=== PATIENT | male | born 1960 | race Caucasian/White ===

== ENCOUNTER 2021-09-25 10:40 | Inpatient (IN) | payer OTHER ==
[~2021-09-25] VITALS: Ht 152.4 cm; Wt 108.0 kg
--- NOTE | 2021-09-25 10:45 | NUR ---
PT TO ROOM WITH STEADY GAIT
[2021-09-25] MEDS ORDERED: MELOXICAM7.5 MG PO (11:14)
[2021-09-25] MEDS ORDERED: METOPROL TAR25 MG PO (11:15)
--- NOTE | 2021-09-25 12:15 | NUR ---
PT ADVISED OF CONTINUED WAIT TIME. COMFORT MEASURES PROVIDED.
[2021-09-25 12:23] LABS: IMMATURE GRANULOCYTES 3.9 % (0.0-5.0); MEAN CELL VOLUME 91.6 fL CALC (80.0-100.0); MEAN CORPUSCULAR HGB 28.7 pG CALC (26.0-32.0); MEAN CORPUSCULAR HGB CONC 31.4 g/dL CAL (32.0-36.0); NEUT# 8.17 thou/uL (1.82-7.42); RED BLOOD COUNT 4.07 mill/uL (4.70-6.10); RED CELL DISTRI WIDTH 13.8 % (11.5-15.5)
[2021-09-25 12:26] LABS: HEMATOCRIT 37.3 % (39.0-50.0); HEMOGLOBIN 11.7 g/dl (14.0-18.0)
[2021-09-25 12:34] LABS: ALBUMIN 3.5 g/dL (3.2-5.0); BILIRUBIN, TOTAL 0.3 mg/dL (0.0-1.4); BUN 11 mg/dL (8-23); BUN/CREATININE RATIO 12 (12-20 (CALC)); CHLORIDE 99 mmol/l (95-108); CREATININE 0.9 mg/dL (0.7-1.3); GFR > 60 ML/MIN (>=60 (CALC)); GFR FOR AFR.AMER. > 60 ML/MIN (>=60 (CALC)); POTASSIUM 3.6 mmol/l (3.5-5.1); SGOT/AST 31 u/l (19-48); SODIUM 139 mmol/l (137-146); TOTAL PROTEIN 7.5 g/dL (6.3-8.2)
[2021-09-25 12:37] LABS: ALKALINE PHOSPHATASE 155 u/l (38-126); ANION GAP 12 (6-22 (CALC)); CARBON DIOXIDE 32 mmol/l (22-30)
--- NOTE | 2021-09-25 13:20 | NUR ---
PT RESTING ON LEFT SIDE ON STRETCHER. APPEARS COMFORTABLE.
--- NOTE | 2021-09-25 14:15 | NUR ---
AREA TO RT POST BACK I&D. PT TOLERATED WELL. APPROX 500 ML PURULENT DRAINAGE OBTAINED. WOUND CULTURE OBTAINED. DRSG APPLIED. PT AWARE OF PENDING SURGICAL CONSULT AND PLAN TO ADMIT.
--- NOTE | 2021-09-25 15:03 | NUR ---
S: SILVIA WILLINGHAM is a 61 M who presents with abscess. He has a history of hypertension. All medications in patient's chart were reviewed. O: VS: BP 140/82 mmHg, P 93 bpm, RR 18 bpm, T 96.3 F W 105 kg, HT 69 in, Scr= 0.9 mg/dL, CrCl= 100.3 ml/min A: Blood culture is pending. Wound culture is pending. P: Patient is on Zosyn 3.375 gm IV Q6H. Vancomycin ordered for pharmacy to dose. Start Vancomycin 1 gm IV Q12H. Vancomycin trough is drawn before the 4th dose on 09/27/21 @ 0330. Vancomycin goal trough is between 10-15 mcg/ml. Pharmacy will follow and or advise on antibiotics use as needed.
--- NOTE | 2021-09-25 17:00 | NUR ---
SECOND IV SITE TO RFA
--- NOTE | 2021-09-25 18:00 | NUR ---
IV FLUIDS INFUSING SITES HEALTHY. IV ABT KOTA SORENSON COMPLETED.
--- NOTE | 2021-09-25 19:00 | NUR ---
PT MEDICATED FOR PAIN REPOSITIONED FOR COMFORT.
--- NOTE | 2021-09-25 19:19 | NUR ---
REPORT RECEIVED FROM Lester KANG RN
--- NOTE | 2021-09-25 19:22 | NUR ---
REPORT PROVIDED TO NURSE ON MEDSURG ADVISED OF ALL ATTACHMENTS IV MEDS AND EVENTS. PT TO MEDSURG ON TELEMETRY, IV SITES HEALTHY. FLUIDS INFUSING. GAURI CDI.
[2021-09-25 19:45] VITALS: BP 150/73
--- NOTE | 2021-09-25 19:50 | NUR ---
ASSEMENT COMPLETED AT THIS TIME, DRESSING TO RIGHT SCAPULA REIMAINS CDI
[2021-09-26] VITALS (11 sets, daily range): BP systolic 111–155; BP diastolic 61–82
--- NOTE | 2021-09-26 | NUR ---
ANTIBIOTICS HUNG AT THIS TIME. PT DENIES ANY PAIN, DRESSING CDI.
--- NOTE | 2021-09-26 04:30 | NUR ---
ANTIBIOTIC HUNG AT THIS TIME. PREVIOSULY MEDICATED FOR DRESSING CHANGE. PT SLEEPING WHEN WRITTER ARRIVED WITH SUPPLIES.
[2021-09-26 05:57] LABS: HEMATOCRIT 33.5 % (39.0-50.0); HEMOGLOBIN 10.5 g/dl (14.0-18.0); MEAN CELL VOLUME 91.3 fL CALC (80.0-100.0); MEAN CORPUSCULAR HGB 28.6 pG CALC (26.0-32.0); MEAN CORPUSCULAR HGB CONC 31.3 g/dL CAL (32.0-36.0); RED BLOOD COUNT 3.67 mill/uL (4.70-6.10); RED CELL DISTRI WIDTH 13.8 % (11.5-15.5)
[2021-09-26 06:07] LABS: ANION GAP 12 (6-22 (CALC)); BUN 10 mg/dL (8-23); BUN/CREATININE RATIO 14 (12-20 (CALC)); CARBON DIOXIDE 26 mmol/l (22-30); CHLORIDE 100 mmol/l (95-108); CREATININE 0.7 mg/dL (0.7-1.3); GFR > 60 ML/MIN (>=60 (CALC)); GFR FOR AFR.AMER. > 60 ML/MIN (>=60 (CALC)); MAGNESIUM 2.1 mg/dL (1.6-2.3); POTASSIUM 3.9 mmol/l (3.5-5.1); SODIUM 134 mmol/l (137-146)
--- NOTE | 2021-09-26 10:44 | NUR ---
RECEIVE THIS MORNING REPORT FROM JESSICA ALONSO. PATIENT STABLE AT THIS TIME. CHANGE DRESSING. GIVED PAIN MEDICATIONS AND EDUCATED ABOUT PLAN OF NURSING FOR TODAY AND CLINICAL MANAGEMENT. PATIENT REPORT UNDERSTAND
--- NOTE | 2021-09-26 11:28 | NUR ---
PATIENT LIVIG TO OR 11:10 FOR PROCEDURE
--- NOTE | 2021-09-26 14:26 | NUR ---
PATIENT RETURNS TO OR. STABLE. DOES NOT REPORT PAIN AT THIS TIME. VITAL SIGNS ARE VERIFY ACCORDING TO PROTOCOL
--- NOTE | 2021-09-26 15:44 | NUR ---
PATIENT STABLE AT THIS TIME. NO REPORT PAIN. HOUERLY ROUND IS COMPLETE
--- NOTE | 2021-09-26 16:00 | NUR ---
CALLED [facility] FOR WOUND VAC PLACEMENT ON PATIENT IN OPERATING ROOM. SPOKE TO SURJIT AND WAS GIVEN CONFIRMATION NUMBER [id number] FOR THE WOUND VAC SERIAL NUMBER [id number].
--- NOTE | 2021-09-26 20:00 | NUR ---
PT IN BED; A&O X3. EVEN AND UNLABORED RESPIRATIONS; CLEAR LUNG SOUNDS UPON AUSCULTATION. TELEMETRY IN PLACE. ACTIVE BOWEL SOUNDS X4 QUADRANTS. WOUND VAC IN PLACE UNDER RIGHT SCAPULA @ 125 mm Hg. NO DISTRESS NOTED. PT C/O PAIN ON SURGICAL INCISION, BUT DENIES THE NEED OF PAIN MED AT THIS MOMENT. IV SITE HEALTHY AND PATENT. SAFETY PRECAUTIONS IN PLACE. CALL LIGHT WITHIN REACH.
--- NOTE | 2021-09-26 21:45 | NUR ---
PT C/O PAIN ON SURGICAL INCISION 12/10. PT MEDICATED. CALL LIGHT WITHIN REACH.
[2021-09-27] VITALS: BP 162/80
--- NOTE | 2021-09-27 00:30 | NUR ---
PT C/O ON INSICION ON RIGHT SCAPULA 11/10; PT MEDICATED. PT BP WAS 162/80; WILL RECHECK. TELEMETRY AND SAFETY PRECAUTIONS IN PLACE. CALL LIGHT WITHIN REACH.
[2021-09-27 03:52] LABS: HEMATOCRIT 34.6 % (39.0-50.0); HEMOGLOBIN 10.8 g/dl (14.0-18.0); MEAN CELL VOLUME 90.8 fL CALC (80.0-100.0); MEAN CORPUSCULAR HGB 28.3 pG CALC (26.0-32.0); MEAN CORPUSCULAR HGB CONC 31.2 g/dL CAL (32.0-36.0); RED BLOOD COUNT 3.81 mill/uL (4.70-6.10); RED CELL DISTRI WIDTH 13.4 % (11.5-15.5)
--- NOTE | 2021-09-27 04:00 | NUR ---
PT SLEEPING. TELEMETRY IN PLACE. NO DISTRESS NOTED. P/O PAIN ON SURGICAL INSICION, BUT STATES IT IS TOLERABLE AND DO NOT NEED PAIN MED AT THIS TIME. WOUND VAC @[address];125 CC OF SEROSANGUINEOUS DRAINAGE. SAFETY PRECAUTIONS IN PLACE. CALL LIGHT WITHIN REACH.
[2021-09-27 04:05] LABS: ANION GAP 9 (6-22 (CALC)); BUN 8 mg/dL (8-23); BUN/CREATININE RATIO 12 (12-20 (CALC)); CARBON DIOXIDE 28 mmol/l (22-30); CHLORIDE 101 mmol/l (95-108); CREATININE 0.7 mg/dL (0.7-1.3); GFR > 60 ML/MIN (>=60 (CALC)); GFR FOR AFR.AMER. > 60 ML/MIN (>=60 (CALC)); POTASSIUM 3.8 mmol/l (3.5-5.1); SODIUM 134 mmol/l (137-146)
[2021-09-27 04:35] VITALS: BP 151/85
--- NOTE | 2021-09-27 05:10 | NUR ---
#22G RH OCCULDED. NEW #22G LH STARTED, SITE PATENT CONTINUE TO INFUSE WITH IVF PER ORDER, SITE PATENT.
--- NOTE | 2021-09-27 05:47 | NUR ---
PERCOCET ADMINISTERED FOR 9/10 PAIN OF SURGICAL SITE ON RIGHT SHOLDER BLADE. PT TOLERATED WELL.
--- NOTE | 2021-09-27 07:32 | NUR ---
RECEIVE REPORT FROM ЮЛИЯ ALONSO.
[2021-09-27 08:00] VITALS: BP 151/85
--- NOTE | 2021-09-27 09:42 | NUR ---
PATIENT ALERT AND ORIENTED. NOT RESPIRATORY DISTRESS AT THIS TIME. EDUCATED ABOUT MEDICATIONS, PAIN MANAGEMENT AND PLAN OF CARE FOR TODAY. PATIENT REFER UNDERSTAND.
--- NOTE | 2021-09-27 10:15 | NUR ---
S: SILVIA WILLINGHAM is a 61 M who presents with an abscess. He has a history of hypertension. All medications in patient's chart were reviewed. O: VS: BP 151/85 mmHg, P 89 beats/min, RR 18 breaths/min, T 98.4 F W 108 kg, HT 175.26 cm, Scr=0.9 mg/dL, CrCl= 100.3 ml/min A: Blood culture shows no growth after 24 hours Wound culture shows no growth after 48 hours P: Patient is on Zosyn 3.375 grams IV Q6H. Vancomycin ordered for pharmacy to dose. Vancomycin 1250 mg IV Q12H. Vancomycin trough is drawn before the 4th dose on 09/28 @1530. Vancomycin goal trough is between 10-15 mcg/ml. Pharmacy will follow and or advise on antibiotics use as needed.
[2021-09-27 11:55] VITALS: BP 153/87
--- NOTE | 2021-09-27 13:29 | NUR ---
Patient resting in chang. Stable at this time.
[2021-09-27 14:59] VITALS: BP 159/75
[2021-09-27 19:05] VITALS: BP 169/91
--- NOTE | 2021-09-27 20:00 | NUR ---
PT IN RECLINER WATCHING TV; A&O X3. EVEN AND UNLABORED RESPIRATIONS; CLEAR LUNG SOUNDS UPON AUSCULTATION. ACTIVE BOWEL SOUNDS X4 QUADRANTS. WOUND VAC IN PLACE @ 125 mm Hg WITH SEROUSANGUINEOUS DRAINAGE. NO DISTRESS NOTED. PT C/O PAIN ON SURGICAL SITE, BUT REFUSES TO TAKE PAIN MED AT THE MOMENT. TELEMETRY AND SAFETY PRECAUTIONS IN PLACE. CALL LIGHT WITHIN REACH.
[2021-09-28] VITALS: BP 152/93
--- NOTE | 2021-09-28 00:20 | NUR ---
PT SITTING IN RECLINER; C/O PAIN ON SURGICAL INCISION UNDER RIGHT SCAPULA, PAIN LEVEL 5/10. ADMINISTERED PAIN MEDICATION. CALL LIGHT WITHIN REACH.
[2021-09-28 04:00] VITALS: BP 162/81
--- NOTE | 2021-09-28 04:18 | NUR ---
PT SLEEPING IN RECLINER; WOKE TO ADMINISTER SCHEDULED MED. NO DISTRESS NOTED. PT DENIES PAIN AT THE MOMENT. WOUND VAC @125 mm HG WITH SEROSANGUINEOUS DRAINAGE IN COLLECTION CHAMBER. CALL LIGHT WITHIN REACH.
[2021-09-28 05:55] LABS: HEMATOCRIT 34.5 % (39.0-50.0); HEMOGLOBIN 10.7 g/dl (14.0-18.0); MEAN CELL VOLUME 92.2 fL CALC (80.0-100.0); MEAN CORPUSCULAR HGB 28.6 pG CALC (26.0-32.0); RED BLOOD COUNT 3.74 mill/uL (4.70-6.10); RED CELL DISTRI WIDTH 13.3 % (11.5-15.5)
[2021-09-28 06:27] LABS: ANION GAP 13 (6-22 (CALC)); BUN 5 mg/dL (8-23); BUN/CREATININE RATIO 9 (12-20 (CALC)); CARBON DIOXIDE 26 mmol/l (22-30); CHLORIDE 101 mmol/l (95-108); CREATININE 0.6 mg/dL (0.7-1.3); GFR > 60 ML/MIN (>=60 (CALC)); GFR FOR AFR.AMER. > 60 ML/MIN (>=60 (CALC)); POTASSIUM 4.2 mmol/l (3.5-5.1); SODIUM 136 mmol/l (137-146)
[2021-09-28 08:08] VITALS: BP 158/75
--- NOTE | 2021-09-28 08:08 | NUR ---
PT SITTING IN RECLINER. A&O X3. NO DISTRESS NOTED. PT DENIES ANY PAIN AT THIS ITME. CLEAR BREATH SOUNDS UPON AUSCULTATION. ACTIVE BOWEL SOUNDS X4 QUADRANTS. 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 IV HEALTHY AND PATENT. WOUND VAC IN PLACE SET TO CONTINUOUS SUCTION AT 125 MM HG WITH SMALL AMOUNT OF SEROSANGUINEOUS DRAINAGE NOTED IN COLLECTION CANISTER. PT EDUCATED ON THE NEED TO CHANGE WOUND VAC DRESSING PER MD ORDERS; PT AGREEABLE TO PLAN. ASSESSMENT COMPLETED.NO OTHER NEEDS AT THIS TIME. CALL LIGHT WITHIN REACH.
--- NOTE | 2021-09-28 11:30 | NUR ---
PT SITTING IN RECLINER EATING LUNCH. NO NEEDS AT THIS TIME. CALL LIGHT WITHIN REACH.
--- NOTE | 2021-09-28 11:41 | NUR ---
DR MOYER AT BEDSIDE DISCUSSING POC
--- NOTE | 2021-09-28 16:00 | NUR ---
VANCO TROUGH PENDING AT THIS TIME
[2021-09-28 16:16] VITALS: BP 162/95
--- NOTE | 2021-09-28 17:20 | NUR ---
WOUND VAC CHANGED PER MD ORDERS WITH ASSISTANCE OF [place] DEMPSEY RN. PAIN REPORTED MAJOR PAIN DURING AND AFTER PROCEDURE PT WAS MEDICATED PRIOR TO CHANGE. ORDER OBTAINED FROM DR ALEJANDRO FOR AN EXTRA 1 MG OF DILAUDID WELL 2MG DILAUDID PRN FOR DRESSING CHANGE. PT RECONNECTED BACK TO SUCTION AT 125 MM/HG. CALL LIGHT WITHIN REACH.
--- NOTE | 2021-09-28 18:30 | NUR ---
PT REPORTING NOT WANTING ADDITIONAL PAIN MEDICATION AT THIS TIME; PT TO INFORM NURSE WHEN HE IS READY. PT UP TO RECLINER. CALL LIGHT WITHIN REACH.
[2021-09-28 18:51] VITALS: BP 161/99
--- NOTE | 2021-09-28 20:00 | NUR ---
PATIENT SITTING UP IN THE RECLINER AT THIS TIME-AWAKE ALERT ORIENTED X3. PATIENT WITH DRESSING TO RIGHT LAT CHEST/BACK INTACT TO WOUND VAC AT 125MMHG ORDERED DRAINING SEROSANGUNIOUS FLUID. IV SITE TO LEFT HAND INTACT WITH IVF AT KVO RATE. TELE MONITOR IN PLACE WITH LAST READING SR-94. PATIENT VOIDING YELLOW URINE IN URINAL. STATES THAT HE DID HAVE BM THIS MORNING. PATIENT STATES THAT HAVING THE DRESSING CHANGED ON HIS RIGHT LAT CHEST AND BACK THIS AFTERNOON WAS AWFUL AND VERY PAINFUL EVEN WITH PAIN MEDS ON BOARD. EXCRUCIATING PAIN PER PATIENT. MEDICATED WITH DILAUDID 1MG ORDERED FOR PAIN. SAFETY PRECAUTIONS REINFORCED. CALL LIGHT IN REACH. WILL CONT TO MONITOR.
[2021-09-28 23:44] VITALS: BP 162/89
--- NOTE | 2021-09-29 00:14 | NUR ---
PATIENT REMAINS UP IN THE RECLINER-STATES THAT HE IS GOING TO STAY UP IN THE CHAIR-HE CAN'T SLEEP IN THE BED. DRESSING TO RIGHT LATERAL BACK/CHEST INTACT TO WOUND VAC AT 125MMHG ORDERED DRAINING SEROSANGUINOUS FLUID. IVF PATENT AND INFUSING VIA LEFT HAND AT KVO RATE. ZOSYN HUNG ORDERED. TELE MONITOR IN PLACE. MEDICATED FOR PAIN WITH PERCOCET 5/325MG PO. SAFETY PRECAUTIONS REINFORCED. CALL LIGHT IN REACH. WILL CONT TO MONITOR.
[2021-09-29 03:28] VITALS: BP 158/91
--- NOTE | 2021-09-29 04:00 | NUR ---
PATIENT REMAINS UP IN THE RECLINER. YAS THOMAS ORDERED VIA LEFT HAND SITE. TELE MONITOR IN PLACE. WOUND VAC TO RIGHT LAT CHEST/BACK WOUND ORDERED. NO COMPLAINTS AT THIS TIME. CALL LIGHT IN REACH. WILL CONT TO MONITOR.
--- NOTE | 2021-09-29 07:41 | NUR ---
PT IS A 61 YOM WHO PRESENTS WITH ABSCESS. ALL MEDS IN PTS CHARTS HAVE BEEN REVIEWED. SCR = 0.6 MG/DL CRCL = 153 ML/MIN VANCOMYCIN TROUGH 09/28 @ 1530 = 11 MCG/ML VANCOMYCIN ORDERED FOR PHARMACY TO DOSE. CONTINUE VANCOMYCIN 1250MG IV Q12H. RE-CHECK TROUGH 09/30 @ 0330. GOAL TROUGH IS 10-15 MCG/ML. PHARMACY WILL CONTINUE TO FOLLOW.
--- NOTE | 2021-09-29 08:04 | NUR ---
PATIENT IS SITTING IN THE RECLINER. ASSESSMENT DONE. PATIENT IS ALERT AND OREINT X3. PATIENT STATED PAIN IN RIGHT SHOULDER 2/10 MEDICATED PATIENT WITH OXYCODONE PER PATIENT REQUEST. TELE IN PLACE. CHEST/BACK DRESSING CDI WITH WOUND VAC IN PLACE AT 125MMHG CONTINUOUS AND SEROSANGUINOUS DRAINAGE NOTED. PATIENT DENIES ANY OTHER NEEDS. CALL LIGHT IN REACH.
--- NOTE | 2021-09-29 11:59 | NUR ---
PATIENT IS SITTING IN THE RECLINER EATING HIS LUNCH WITH NO DISTRESS NOTED. WOUND VAC IN PLACE PER ORDER. PATIENT DENIES NEEDS. CALL LIGHT IN REACH.
[2021-09-29 13:34] VITALS: BP 170/84
[2021-09-29 14:00] VITALS: BP 170/84
[2021-09-29 15:03] VITALS: BP 165/80
--- NOTE | 2021-09-29 16:23 | NUR ---
PATIENT SITTING IN THE RECLINER. CHEST/BACK DRESSING CDI AND WOUND VAC IN PLACE. PATIENT STATED PAIN IN BACK 08/12. MEDICATED PATIENT WITH TYLENOL. PATIENT DENIES ANY OTHER NEEDS. CALL LIGHT IN REACH.
[2021-09-29 19:40] VITALS: BP 171/79
--- NOTE | 2021-09-29 20:00 | NUR ---
PATIENT SITTING UP IN RECLINER THIS TIME-AWAKE ALERT AND ORIENTEDX3. PATIENT WITH DRESSING TO RIGHT LAT CHEST/BACK INTACT AND TO WOUND VAC AT 125MMHG ORDERED. CONT TO DRAIN SEROSANGUNIOUS FLUID. VOIDING CLEAR YELLOW URINE IN URINAL. STATES THAT HE DID HAVE A COUPLE OF BM'S TODAY. IVF PATENT AN DINFUSING VIA LEFT HAND SITE AT KVO RATE. TELE MONITOR IN PLACE AND LAST READING WAS SR-69. NO PAIN ISSUES AT THIS TIME. SAFETY PRECAUTIONS REINFORCED. CALL LIGHT IN REACH. WILL CONT TO MONITOR.
[2021-09-30] VITALS: BP 179/93
--- NOTE | 2021-09-30 | NUR ---
REMAINS SITTING UP IN THE RECLINER. IV ZOSYN STARTED AND IV SITE TO LEFT HAND STARTED TO LEAK AND D/C'ED WITH CATH INTACT. NEW IV SITE STARTED TO RIGHT WRIST-#22 WITH GOOD BLOOD RETURN. MEDICATED WITH PERCOCET 10/325MG PO FOR RIGHT LAT CHEST/BACK. TELE MONITOR REMAINS IN PLACE. CONT TO VOID CLEAR YELLOW URINE IN URINAL. DRESSING TO RIGHT LAT CHEST/BACK INTAC TO WOUND VAC AT 125MMHG CONT. SAFETY PRECAUTIONS REINFORCED. CALL LIGHT IN REACH. WILL CONT TO MONITOR.
[2021-09-30 03:53] LABS: HEMATOCRIT 35.7 % (39.0-50.0); HEMOGLOBIN 11.1 g/dl (14.0-18.0); MEAN CELL VOLUME 92.2 fL CALC (80.0-100.0); MEAN CORPUSCULAR HGB 28.7 pG CALC (26.0-32.0); MEAN CORPUSCULAR HGB CONC 31.1 g/dL CAL (32.0-36.0); RED BLOOD COUNT 3.87 mill/uL (4.70-6.10); RED CELL DISTRI WIDTH 13.1 % (11.5-15.5)
[2021-09-30 03:55] VITALS: BP 160/75
[2021-09-30 03:57] LABS: ANION GAP 12 (6-22 (CALC)); BUN 9 mg/dL (8-23); BUN/CREATININE RATIO 11 (12-20 (CALC)); CARBON DIOXIDE 29 mmol/l (22-30); CHLORIDE 103 mmol/l (95-108); CREATININE 0.8 mg/dL (0.7-1.3); GFR > 60 ML/MIN (>=60 (CALC)); GFR FOR AFR.AMER. > 60 ML/MIN (>=60 (CALC)); POTASSIUM 4.2 mmol/l (3.5-5.1); SODIUM 139 mmol/l (137-146)
--- NOTE | 2021-09-30 03:58 | NUR ---
PATIENT RESTING IN BED AT THIS TIME POSITIIONED ON LEFT SIDE. VOIDING QS IN URINAL. IVF PATENT AND INFUSING VIA RIGHT WRIST SITE. VANCO TROUGH WAS DRAWN AWAITING RESULTS. TELE MONITOR IN PLACE. O2 SAT AT THIS TIME ON RA IS 96%. CALL LIGHT IN REACH.WILL CONT TO MONITOR.
[2021-09-30 07:00] VITALS: BP 159/75
--- NOTE | 2021-09-30 07:00 | NUR ---
PATIENT LAYING IN BED AT THIS TIME ALERT AND ORIENTED X 3 PATIENT DEINES ANY PAIN AT THIS TIME. PATIENT STATES HE CURRENTLY HAS NO PAIN. LUNG SORIANO ARE CLEAR PATIENT DOES HAVE A WOUND VAC IN PLACE AND PINK[place] SEROUS SANGUINEOUS DRAINAGE NOTED IN WOUND VAC COLLECTION VESSAL. WOUND VAC IS SET ON 125MM/HG AT THIS TIME. PATIENT HAS TELE MONITOR ON AT THIS TIME AND BEING MONITORED BY ED. SIDERAILS ARE UP CALL LIGHT WITHIN REACH. WILL CONTINUE TO MONITOR.
--- NOTE | 2021-09-30 08:51 | NUR ---
S: SILVIA WILLINGHAM is a 61 M who presents with abscess. He has a history of hypertension. All medications in patient's chart were reviewed. O: VS: BP 159/75 mmHg, P 74 bpm, RR 18 bpm, T 98.3 F W 108 kg, HT 69 in, Scr= 0.8 md/dl, CrCl= 97.9 ml/min A: Preliminary blood cultures show no growth. Final wound culture shows no growth. Vancomycin trough 09/30 @ 0330 = 13 mcg/ml P: Patient is on Zosyn 3.375 g IV Q6H. Vancomycin ordered for pharmacy to dose. Continue Vancomycin 1250 mg IV Q12H. Vancomycin trough is drawn before the 4th dose on 10/01 @ 1530. Vancomycin goal trough is between 10-15 mcg/ml. Pharmacy will follow and or advise on antibiotics use as needed.
[2021-09-30] MEDS ORDERED: AMOX/K CLAV875 M1 PO (10:03)
[2021-09-30] MEDS ORDERED: OXYCODO-APAP1 TA2 PO (10:13)
[2021-09-30] MEDS ORDERED: PERCOCET1 TA4 PO (10:18)
[2021-09-30 10:19] VITALS: BP 165/87
[2021-09-30 10:40] VITALS: BP 165/87
[2021-09-30 11:04] VITALS: BP 165/87
--- NOTE | 2021-09-30 11:05 | NUR ---
nurse notified of patient blood pressure.
--- NOTE | 2021-09-30 14:49 | NUR ---
PATIENT STABLE EDUCATED ABOUT DISCHARGED. PATIENT REFER UNDERSTAND.
--- NOTE | 2021-10-01 10:02 | NUR ---
CALLED [facility] SPOKE TO DELICIA ABOUT WOUND VAC PICKUP [id number] AND WAS GIVEN REFERENCE NUMBER [id number].
== END 2021-09-30 14:43 | disposition home or self-care (01) | DRG 603 ==
LOC: ED 10:40 → ED-I 13:54 → ED 13:54 → ED-I 14:35 → ED 14:58 → MS2 14:59
PROVIDERS: Emergency Medicine; Nurse Practitioner; ADMIT Internal Medicine; ATTEND Internal Medicine
PROC: 0H95XZZ Drainage of Chest Skin, External Approach (ICD-10-PCS; principal; 2021-09-25)
PROC: 0H96XZZ Drainage of Back Skin, External Approach (ICD-10-PCS; 2021-09-26)
DX: L02.212 Cutaneous abscess of back [any part, except buttock and flank] (principal); L02.213 Cutaneous abscess of chest wall; L03.313 Cellulitis of chest wall; I10 Essential (primary) hypertension; Z20.822 Contact with and (suspected) exposure to COVID-19
CPT/HCPCS: J0131; J1650; J3370; Q9967

== ENCOUNTER 2021-12-17 08:08 | Emergency (ER) | payer OTHER ==
[~2021-12-17] VITALS: Ht 175.3 cm; Wt 106.8 kg
[~2021-12-17 08:08] MED LIST: AMOX/K CLAV875 M1 PO; MELOXICAM7.5 MG PO; METOPROL TAR25 MG PO; OXYCODO-APAP1 TA2 PO; PERCOCET1 TA4 PO
[2021-12-17 08:21] VITALS: BP 169/85
[2021-12-17 08:58] LABS: HEMATOCRIT 41.8 % (39.0-50.0); HEMOGLOBIN 13.3 g/dl (14.0-18.0); IMMATURE GRANULOCYTES 0.2 % (0.0-5.0); MEAN CELL VOLUME 91.3 fL CALC (80.0-100.0); MEAN CORPUSCULAR HGB CONC 31.8 g/dL CAL (32.0-36.0); NEUT# 7.71 thou/uL (1.82-7.42); RED BLOOD COUNT 4.58 mill/uL (4.70-6.10); RED CELL DISTRI WIDTH 13.2 % (11.5-15.5)
[2021-12-17 09:12] LABS: ALBUMIN 4.1 g/dL (3.2-5.0); ALKALINE PHOSPHATASE 79 u/l (38-126); BUN 12 mg/dL (8-23); BUN/CREATININE RATIO 15 (12-20 (CALC)); CHLORIDE 104 mmol/l (95-108); CREATININE 0.8 mg/dL (0.7-1.3); GFR > 60 ML/MIN (>=60 (CALC)); GFR FOR AFR.AMER. > 60 ML/MIN (>=60 (CALC)); POTASSIUM 4.1 mmol/l (3.5-5.1); SGOT/AST 19 u/l (19-48); SODIUM 138 mmol/l (137-146); TOTAL PROTEIN 7.4 g/dL (6.3-8.2)
[2021-12-17 09:13] LABS: ANION GAP 16 (6-22 (CALC)); BILIRUBIN, TOTAL 0.5 mg/dL (0.0-1.4); CARBON DIOXIDE 22 mmol/l (22-30)
[2021-12-17] MEDS ORDERED: BACTRIM DS1 TAB PO (10:17)
[2021-12-17] MEDS ORDERED: KEFLEX500 MG PO (10:17)
[2021-12-17 10:27] VITALS: BP 169/85
== END 2021-12-17 10:39 | disposition home or self-care (01) | DRG 607 ==
LOC: ED 08:08
PROVIDERS: Emergency Medicine
DX: L72.9 Follicular cyst of the skin and subcutaneous tissue, unspecified (principal); I10 Essential (primary) hypertension
CPT/HCPCS: Q9967

== ENCOUNTER 2021-12-21 11:55 | Emergency (ER) | payer OTHER ==
[~2021-12-21] VITALS: Ht 175.3 cm; Wt 104.0 kg
[~2021-12-21 11:55] MED LIST changes: +BACTRIM DS1 TAB PO; +KEFLEX500 MG PO
[2021-12-21 12:03] VITALS: BP 184/88
[2021-12-21 12:30] VITALS: BP 169/95
[2021-12-21 12:55] LABS: HEMATOCRIT 41.1 % (39.0-50.0); IMMATURE GRANULOCYTES 0.6 % (0.0-5.0); MEAN CELL VOLUME 91.1 fL CALC (80.0-100.0); MEAN CORPUSCULAR HGB 28.8 pG CALC (26.0-32.0); MEAN CORPUSCULAR HGB CONC 31.6 g/dL CAL (32.0-36.0); NEUT# 7.5 thou/uL (1.82-7.42); RED BLOOD COUNT 4.51 mill/uL (4.70-6.10); RED CELL DISTRI WIDTH 13.1 % (11.5-15.5)
[2021-12-21 13:09] LABS: ALBUMIN 4.1 g/dL (3.2-5.0); ALKALINE PHOSPHATASE 75 u/l (38-126); ANION GAP 14 (6-22 (CALC)); BILIRUBIN, TOTAL 0.2 mg/dL (0.0-1.4); BUN 13 mg/dL (8-23); BUN/CREATININE RATIO 14 (12-20 (CALC)); CARBON DIOXIDE 24 mmol/l (22-30); CHLORIDE 105 mmol/l (95-108); CREATININE 0.9 mg/dL (0.7-1.3); GFR > 60 ML/MIN (>=60 (CALC)); GFR FOR AFR.AMER. > 60 ML/MIN (>=60 (CALC)); POTASSIUM 4.4 mmol/l (3.5-5.1); SGOT/AST 20 u/l (19-48); SODIUM 138 mmol/l (137-146); TOTAL PROTEIN 7.9 g/dL (6.3-8.2)
[2021-12-21 13:17] VITALS: BP 169/95
== END 2021-12-21 13:24 | disposition home or self-care (01) | DRG 305 ==
LOC: ED 11:55
PROC: 0H96XZZ Drainage of Back Skin, External Approach (ICD-10-PCS; principal; 2021-12-21)
DX: I10 Essential (primary) hypertension (principal); L02.212 Cutaneous abscess of back [any part, except buttock and flank]

== ENCOUNTER 2021-12-23 16:31 | Emergency (ER) | payer MEDICAID ==
[~2021-12-23] VITALS: Ht 175.3 cm; Wt 110.6 kg
[2021-12-23 17:52] VITALS: BP 183/110
[2021-12-23 18:00] VITALS: BP 190/118
[2021-12-23 18:10] VITALS: BP 177/100
[2021-12-23] MEDS ORDERED: CLEOCIN300 MG PO (18:10)
[2021-12-23] MEDS ORDERED: HYDROCO/APAP1 TA9 PO (18:10)
[2021-12-23 18:33] VITALS: BP 177/100
== END 2021-12-23 18:36 | disposition home or self-care (01) ==
LOC: ED 16:31
DX: Z48.01 Encounter for change or removal of surgical wound dressing (principal); I10 Essential (primary) hypertension